=== PATIENT | male | born 1970 | race Caucasian/White ===

== ENCOUNTER 2018-03-12 07:16 | Emergency (ER) | END 2018-03-12 09:10 | disposition home or self-care (01) ==

== ENCOUNTER 2019-01-13 17:51 | Emergency (ER) | payer OTHER ==
[~2019-01-13] VITALS: Wt 93.7 kg
[~2019-01-13 17:51] MED LIST: ACET500C5 PO; ONDA4TAB14 PO
[2019-01-13 18:29] VITALS: BP 101/64; PULSE 97; RESP 18
--- NOTE | 2019-01-13 22:40 | ERD ---
ER Documentation Chief Complaint Chief Complaint LEFT WRIST PAIN FROM GATE FALLING ON ARM HPI Right-hand dominant 48-year-old male is here with left wrist pain after a gait fell onto his left wrist. He denies any loss of range of motion or numbness or tingling. Has not taken any medications for pain. ROS All systems reviewed and are negative except as per history of present illness. Medications Home Meds Active Scripts Ibuprofen* (Motrin*) 800 Mg Tab, 800 MG PO Q6, #30 TAB Prov:JOHN BOLES PA-C 01/13/19 Acetaminophen* (Tylophen*) 500 Mg Capsule, 1 CAP PO Q6H PRN for PAIN AND OR ELEVATED TEMP, #20 CAP Prov:JONATHON BRAVO PA-C 03/12/18 Ondansetron (Ondansetron Odt) 4 Mg Tab.rapdis, 4 MG PO Q6H PRN for NAUSEA AND/OR VOMITING, #10 TAB Prov:JONATHON BRAVO PA-C 03/12/18 Allergies Allergies: Coded Allergies: No Known Allergy (Unverified , 03/12/18) PMhx/Soc Medical and Surgical Hx: pt denies Medical Hx, pt denies Surgical Hx Hx Alcohol Use: Yes Hx Substance Use: No Hx Tobacco Use: Yes Smoking Status: Current some day smoker FmHx Family History: No diabetes Physical Exam Vitals Vital Signs Date Temp Pulse Resp B/P (MAP) Pulse Ox O2 O2 Flow FiO2 Time Delivery Rate 01/13/19 98.7 97 18 101/64 97 18:29 (76) Physical Exam Const: No acute distress Head: Atraumatic Eyes: Normal Conjunctiva ENT: Normal External Ears, Nose and Mouth. Neck: Full range of motion. No meningismus. Resp: Clear to auscultation bilaterally Cardio: Regular rate and rhythm, no murmurs Hand -left Skin: No laceration, or evidence of external trauma Compartments: Soft Sensation: Intact shoulder/pinky/middle finger/thumb web space Bones: Nontender Snuffbox: Nontender Joints: No effusion Wrist: Flex/Ext: Normal Uln/Radial deviation: Normal Pron/Supination Normal Finger: Flex/Ext: Normal Add/abd: Normal Thumb: Flex/Ext: Normal Opposition: Normal Thumbs up: Normal Procedures/MDM 48-year-old is here with wrist pain after trauma. It is not his dominant hand. He declined pain medication. X-rays are ordered and are negative. Prescription for Motrin given. Copy of x-ray results given to follow-up with primary care. Patient counseled regarding my diagnostic impression and care plan. Prior to discharge all questions answered. Pt agrees with treatment plan and understands strict return precautions. Pt is instructed to follow up with primary care provider within 24-48 hours. Precautionary instructions provided including in structions to return to the ER if not improving or for any worsening or changing symptoms or concerns. Departure Diagnosis: Primary Impression: Wrist sprain Condition: Stable JOHN BOLES PA-C Jan 13, 2019 22:40
[2019-01-13] MEDS ORDERED: IBUP800T48 PO (23:01)
== END 2019-01-13 23:21 | disposition home or self-care (01) ==
LOC: FTE 17:51
DX: S63.502A Unspecified sprain of left wrist, initial encounter (principal); F17.210 Nicotine dependence, cigarettes, uncomplicated; W20.8XXA Other cause of strike by thrown, projected or falling object, initial encounter; Y92.9 Unspecified place or not applicable